=== PATIENT | male | born 1930 | race Caucasian/White ===

== ENCOUNTER 2019-09-28 00:29 | Emergency (ER) | payer MEDICARE, BC ==
[2019-09-28] MEDS ORDERED: Furosemide 40 MG/4 ML VIAL IVPUSH ONE (00:34)
[2019-09-28] MEDS ORDERED: Albuterol 0.083% 2.5 MG/3 ML Neb Soln NEB ONE (00:35)
--- NOTE | 2019-09-28 00:49 | EDM.PDOC ---
ED HPI GENERAL MEDICAL PROBLEM - General Chief Complaint: Respiratory Problem Stated Complaint: SHORT OF BREATH Time Seen by Provider: 09/28/19 00:47 Source of Information: Reports: Patient History Limitations: Reports: No Limitations - History of Present Illness INITIAL COMMENTS - FREE TEXT/NARRATIVE: pt arrived with marked sob. He has been having breathing problems for the past several hours. His ankle have been swollen Onset: Sudden Duration: Hour(s): Location: Reports: Chest Associated Symptoms: Reports: Cough, Diaphoresis, Shortness of Breath, Other ( ankle swelling. ) - Related Data Allergies Allergy/AdvReac Type Severity Reaction Status Date / Time No Known Allergies Allergy Verified 09/28/19 01:12 Home Meds: Home Meds Levothyroxine [Synthroid] 50 mcg PO ACBRK 03/13/14 [History] Losartan [Cozaar] 100 mg PO DAILY 03/13/14 [History] Warfarin Sliding Scale [Coumadin Sliding Scale] 5 mg PO ASDIRECTED 03/13/14 [ History] Clopidogrel [Plavix] 75 mg PO DAILY 11/18/16 [History] Acetaminophen [Tylenol Extra Strength] 650 mg PO Q8H PRN 09/08/17 [History] Latanoprost [Xalatan] 1 drop EYEBOTH DAILY 09/08/17 [History] Tamsulosin [Flomax] 0.4 mg PO DAILY 09/08/17 [History] Warfarin [Coumadin] 2.5 mg PO ASDIRECTED 09/08/17 [History] atorvaSTATin [Lipitor] 80 mg PO BEDTIME 09/08/17 [History] timoloL maleate [Timoptic-XE 0.25% Ophth Gel] 1 drop EYELF DAILY 09/08/17 [ History] Finasteride 5 mg PO DAILY 09/28/19 [History] Furosemide [Lasix] 20 mg PO DAILY 09/28/19 [History] Metoprolol Tartrate 25 mg PO BID 09/28/19 [History] Past Medical History Musculoskeletal History: Reports: Other (See Below) Other Musculoskeletal History: L knee pain Social & Family History - Caffeine Use Caffeine Use: Reports: Coffee, Tea ED ROS GENERAL - Review of Systems Review Of Systems: See Below Constitutional: Reports: Diaphoresis HEENT: Reports: No Symptoms Respiratory: Reports: Shortness of Breath, Wheezing, Cough Cardiovascular: Reports: Palpitations, Other (pt has a known history of atrial fib. ) Endocrine: Reports: No Symptoms GI/Abdominal: Reports: No Symptoms : Reports: No Symptoms Musculoskeletal: Reports: No Symptoms Skin: Reports: No Symptoms Neurological: Reports: No Symptoms Psychiatric: Reports: Anxiety ED EXAM, GENERAL - Physical Exam Exam: See Below Free Text/Narrative:: pt arrived very sob. He is not having chest pain. He has been sob for several days but much worse tonight. He has had significant ankle swelling. Exam Limited By: No Limitations General Appearance: Alert, Anxious, Severe Distress Ears: Normal TMs Nose: Normal Inspection Throat/Mouth: Normal Inspection Head: Atraumatic Neck: Normal Inspection Respiratory/Chest: Decreased Breath Sounds, Rales, Wheezing Cardiovascular: Irregularly Irregular, Other (pt has a history of atrial fib. ) GI/Abdominal: Soft, Non-Tender (Male) Exam: Deferred Rectal (Males) Exam: Deferred Back Exam: Normal Inspection Extremities: Pedal Edema, Other (pt has plus 3 pitting edema. ) Neurological: Alert, Oriented, Normal Cognition Psychiatric: Normal Affect Course - Vital Signs Last Recorded V/S: Last Vital Signs Temp 35.8 C L 09/28/19 00:48 Pulse 67 09/28/19 03:18 Resp 22 H 09/28/19 03:18 BP 116/91 H 09/28/19 03:18 Pulse Ox 96 09/28/19 03:18 - Orders/Labs/Meds Orders: Active Orders 24 hr Category Date Time Status RT Aerosol Therapy [RC] ASDIRECTED Care 09/28/19 00:35 Active Labs: Laboratory Tests 09/28/19 09/28/19 09/28/19 Range/Units 00:40 00:40 00:40 WBC 17.5 H (4.5-11.0) K/uL RBC 4.49 (4.30-5.90) M/uL Hgb 14.0 (12.0-15.0) g/dL Hct 41.5 (40.0-54.0) % MCV 92 (80-98) fL MCH 31 (27-31) pg MCHC 34 (32-36) % Plt Count 397 (150-400) K/uL Neut % (Auto) 73 H (36-66) % Lymph % (Auto) 14 L (24-44) % [place] % (Auto) 13 H (2-6) % Eos % (Auto) 0 L (2-4) % Baso % (Auto) 0 (0-1) % PT (9.5-12.0) sec INR (0.80-1.20) Puncture Site ABG pH (7.350-7.450) ABG pCO2 (35.0-42.0) mmHg ABG pO2 (75.0-100.0) mmHg ABG HCO3 (22.0-26.0) mmol/L ABG Total CO2 (23.0-27.0) mmol/L ABG O2 Saturation (95.0-98.0) % ABG O2 Content (15.0-23.0) %vol ABG Base Excess mm/L ABG Hemoglobin (13.5-18.0) g/dL ABG Oxyhemoglobin % ABG Carboxyhemoglobin (0.0-1.6) % ABG Methemoglobin % O2 Delivery Device Oxygen Flow Rate L Sodium 119 L* (140-148) mmol/L Potassium 4.1 (3.6-5.2) mmol/L Chloride 85 L (100-108) mmol/L Carbon Dioxide 22 (21-32) mmol/L Anion Gap 16.1 H (5.0-14.0) mmol/L BUN 20 H (7-18) mg/dL Creatinine 1.1 (0.8-1.3) mg/dL Est Cr Clr Drug Dosing 41.89 mL/min Estimated GFR (MDRD) > 60 (>60) Glucose 171 H (74-106) mg/dL Calcium 8.2 L (8.5-10.1) mg/dL Total Bilirubin 1.1 H D (0.2-1.0) mg/dL AST 24 (15-37) U/L ALT 30 (12-78) U/L Alkaline Phosphatase 93 (46-116) U/L Troponin I < 0.017 (0.000-0.056) ng/mL NT-Pro-B Natriuret Pep (5-450) pg/mL Total Protein 6.8 (6.4-8.2) g/dL Albumin 3.7 (3.4-5.0) g/dL Globulin 3.1 (2.3-3.5) g/dL Albumin/Globulin Ratio 1.2 (1.2-2.2) Urine Color (YELLOW) Urine Appearance (CLEAR) Urine pH (5.0-8.0) Ur Specific [place] (1.008-1.030) Urine Protein (NEGATIVE) mg/dL Urine Glucose (UA) (NEGATIVE) mg/dL Urine Ketones (NEGATIVE) mg/dL Urine Occult Blood (NEGATIVE) Urine Nitrite (NEGATIVE) Urine Bilirubin (NEGATIVE) Urine Urobilinogen (0.2-1.0) EU/dL Ur Leukocyte Esterase (NEGATIVE) Urine RBC (0-5) Urine WBC (0-5) Ur Epithelial Cells Amorphous Sediment Urine Bacteria Urine Mucus 09/28/19 09/28/19 09/28/19 Range/Units 00:40 00:40 00:40 WBC (4.5-11.0) K/uL RBC (4.30-5.90) M/uL Hgb (12.0-15.0) g/dL Hct (40.0-54.0) % MCV (80-98) fL MCH (27-31) pg MCHC (32-36) % Plt Count (150-400) K/uL Neut % (Auto) (36-66) % Lymph % (Auto) (24-44) % [place] % (Auto) (2-6) % Eos % (Auto) (2-4) % Baso % (Auto) (0-1) % PT 24.1 H (9.5-12.0) sec INR 2.34 H (0.80-1.20) Puncture Site R brachial ABG pH 7.410 (7.350-7.450) ABG pCO2 36.8 (35.0-42.0) mmHg ABG pO2 34.9 L* (75.0-100.0) mmHg ABG HCO3 22.8 (22.0-26.0) mmol/L ABG Total CO2 20.3 L (23.0-27.0) mmol/L ABG O2 Saturation 60.2 L (95.0-98.0) % ABG O2 Content 11.8 L (15.0-23.0) %vol ABG Base Excess -0.9 mm/L ABG Hemoglobin 14.2 (13.5-18.0) g/dL ABG Oxyhemoglobin 59.1 % ABG Carboxyhemoglobin 1.0 (0.0-1.6) % ABG Methemoglobin 0.8 % O2 Delivery Device Nasal cannula Oxygen Flow Rate 2 L Sodium (140-148) mmol/L Potassium (3.6-5.2) mmol/L Chloride (100-108) mmol/L Carbon Dioxide (21-32) mmol/L Anion Gap (5.0-14.0) mmol/L BUN (7-18) mg/dL Creatinine (0.8-1.3) mg/dL Est Cr Clr Drug Dosing mL/min Estimated GFR (MDRD) (>60) Glucose (74-106) mg/dL Calcium (8.5-10.1) mg/dL Total Bilirubin (0.2-1.0) mg/dL AST (15-37) U/L ALT (12-78) U/L Alkaline Phosphatase (46-116) U/L Troponin I (0.000-0.056) ng/mL NT-Pro-B Natriuret Pep 6351 H (5-450) pg/mL Total Protein (6.4-8.2) g/dL Albumin (3.4-5.0) g/dL Globulin (2.3-3.5) g/dL Albumin/Globulin Ratio (1.2-2.2) Urine Color (YELLOW) Urine Appearance (CLEAR) Urine pH (5.0-8.0) Ur Specific [place] (1.008-1.030) Urine Protein (NEGATIVE) mg/dL Urine Glucose (UA) (NEGATIVE) mg/dL Urine Ketones (NEGATIVE) mg/dL Urine Occult Blood (NEGATIVE) Urine Nitrite (NEGATIVE) Urine Bilirubin (NEGATIVE) Urine Urobilinogen (0.2-1.0) EU/dL Ur Leukocyte Esterase (NEGATIVE) Urine RBC (0-5) Urine WBC (0-5) Ur Epithelial Cells Amorphous Sediment Urine Bacteria Urine Mucus 09/28/19 09/28/19 Range/Units 01:31 03:30 WBC (4.5-11.0) K/uL RBC (4.30-5.90) M/uL Hgb (12.0-15.0) g/dL Hct (40.0-54.0) % MCV (80-98) fL MCH (27-31) pg MCHC (32-36) % Plt Count (150-400) K/uL Neut % (Auto) (36-66) % Lymph % (Auto) (24-44) % [place] % (Auto) (2-6) % Eos % (Auto) (2-4) % Baso % (Auto) (0-1) % PT (9.5-12.0) sec INR (0.80-1.20) Puncture Site ABG pH (7.350-7.450) ABG pCO2 (35.0-42.0) mmHg ABG pO2 (75.0-100.0) mmHg ABG HCO3 (22.0-26.0) mmol/L ABG Total CO2 (23.0-27.0) mmol/L ABG O2 Saturation (95.0-98.0) % ABG O2 Content (15.0-23.0) %vol ABG Base Excess mm/L ABG Hemoglobin (13.5-18.0) g/dL ABG Oxyhemoglobin % ABG Carboxyhemoglobin (0.0-1.6) % ABG Methemoglobin % O2 Delivery Device Oxygen Flow Rate L Sodium 121 L (140-148) mmol/L Potassium (3.6-5.2) mmol/L Chloride (100-108) mmol/L Carbon Dioxide (21-32) mmol/L Anion Gap (5.0-14.0) mmol/L BUN (7-18) mg/dL Creatinine (0.8-1.3) mg/dL Est Cr Clr Drug Dosing mL/min Estimated GFR (MDRD) (>60) Glucose (74-106) mg/dL Calcium (8.5-10.1) mg/dL Total Bilirubin (0.2-1.0) mg/dL AST (15-37) U/L ALT (12-78) U/L Alkaline Phosphatase (46-116) U/L Troponin I (0.000-0.056) ng/mL NT-Pro-B Natriuret Pep (5-450) pg/mL Total Protein (6.4-8.2) g/dL Albumin (3.4-5.0) g/dL Globulin (2.3-3.5) g/dL Albumin/Globulin Ratio (1.2-2.2) Urine Color Yellow (YELLOW) Urine Appearance Clear (CLEAR) Urine pH 6.0 (5.0-8.0) Ur Specific [place] 1.020 (1.008-1.030) Urine Protein 30 H (NEGATIVE) mg/dL Urine Glucose (UA) Negative (NEGATIVE) mg/dL Urine Ketones Negative (NEGATIVE) mg/dL Urine Occult Blood Trace-intact H (NEGATIVE) Urine Nitrite Negative (NEGATIVE) Urine Bilirubin Negative (NEGATIVE) Urine Urobilinogen 0.2 (0.2-1.0) EU/dL Ur Leukocyte Esterase Negative (NEGATIVE) Urine RBC 0-5 (0-5) Urine WBC 0-5 (0-5) Ur Epithelial Cells Rare Amorphous Sediment Not seen Urine Bacteria Few Urine Mucus Not seen Meds: Medications Discontinued Medications Generic Name Dose Route Start Last Admin Trade Name Freq PRN Reason Stop Dose Admin Albuterol 2.5 mg 09/28/19 00:35 09/28/19 00:40 Proventil Neb Soln NEB 09/28/19 00:36 2.5 mg ONETIME ONE Administration Furosemide 60 mg 09/28/19 00:34 09/28/19 00:40 Lasix IVPUSH 09/28/19 00:35 60 mg ONETIME ONE Administration Metoprolol Tartrate 2.5 mg 09/28/19 01:00 09/28/19 01:05 Lopressor IVPUSH 09/28/19 01:01 2.5 mg ONETIME ONE Administration - Re-Assessments/Exams Free Text/Narrative Re-Assessment/Exam: 09/28/19 04:03 pt had a chest xray which showed marked pulmonary edema, his bnp is very high. His wbc was also hisgh. His o2 sats were in the 70s. He was placed on bipap and he maintained sats in the 95-100 range, He was given lasix 60 mg and has put out about 600 cc. His na was found to be 119. He was given a albuterol neb because of the wheezing. He could not be admitted to [facility] because no icu beds were available. Departure - Departure Time of Disposition: 04:06 Disposition: DC/Tfer to Acute Hospital 02 Condition: Fair Clinical Impression: Pulmonary edema, Chronic atrial fibrillation, History of Coumadin therapy, Hyponatremia - Discharge Information Referrals: Parth Avelar MD [Primary Care Provider] - Forms: ED Department Discharge Care Plan Goals: transfer to [facility] Sepsis Event Note - Focused Exam Vital Signs: Vital Signs Temp Pulse Pulse Resp BP BP Pulse Ox 09/28/19 03:18 67 22 H 116/91 H 96 09/28/19 02:47 92 09/28/19 02:17 93 107/76 09/28/19 01:42 133 H 21 H 141/64 H 96 09/28/19 01:05 147 H 157/104 H 09/28/19 00:58 166 H 45 H 153/108 H 78 L 09/28/19 00:48 35.8 C L 143 H 35 H 157/104 H 97 Date Exam was Performed: 09/28/19 Time Exam was Performed: 04:03 - My Orders Last 24 Hours: My Active Orders 09/28/19 00:35 RT Aerosol Therapy [RC] ASDIRECTED - Assessment/Plan Last 24 Hours: My Active Orders 09/28/19 00:35 RT Aerosol Therapy [RC] ASDIRECTED
[2019-09-28] MEDS ORDERED: Metoprolol Tartrate 5 MG/5 ML SDV IVPUSH ONE (01:00)
--- NOTE | 2019-09-28 01:02 | CRLCR ---
INDICATION: Shortness of breath TECHNIQUE: Chest radiograph 1 view COMPARISON: 03/13/2014 FINDINGS: Mediastinum: The mediastinum is normal in appearance. The heart silhouette is normal in size and morphology. Lung: Moderate bilateral central airspace infiltrates are present with bibasilar atelectasis and bilateral pleural effusions. Bone and Soft tissue: Unremarkable for age. IMPRESSION: 1. Moderate bilateral central airspace infiltrates are present with bibasilar atelectasis and bilateral pleural effusions. Findings may be due to pulmonary edema. Dictated by Lenny Dumont MD @ 09/28/2019 1:00:35 AM Dictated by: Lenny Dumont MD @ 09/28/2019 01:00:38 (Electronically Signed)
[2019-09-28 03:41] VITALS: BP 116/91; PULSE 67
== END 2019-09-28 04:21 ==
LOC: JP.ED 00:29
DX: I48.20 Chronic atrial fibrillation, unspecified (principal); J81.1 Chronic pulmonary edema; E87.1 Hypo-osmolality and hyponatremia; Z79.02 Long term (current) use of antithrombotics/antiplatelets; Z79.899 Other long term (current) drug therapy
CPT/HCPCS: 36415; 36600; 71045; 80053; 81001; 82803; 83880; 84295; 84484; 85025; 85610; 94640; 96374; 96375; 99285; J1940; J3490

== ENCOUNTER 2019-11-08 11:22 | Emergency (ER) | payer OTHER ==
[2019-11-08] MEDS ORDERED: Aspirin 81 MG Tab.Chew PO ONE (11:44)
[2019-11-08] MEDS ORDERED: Nitroglycerin 0.4 MG Tab.SL SL PRN (11:44)
[2019-11-08] MEDS ORDERED: Sodium Chloride 0.9% 10 ML Syringe FLUSH PRN (11:44)
[2019-11-08] MEDS ORDERED: Diltiazem 25 MG/5 ML SDV IVPUSH ONE (11:46)
--- NOTE | 2019-11-08 11:50 | EDM.PDOC ---
ED HPI GENERAL MEDICAL PROBLEM - General Chief Complaint: Cardiovascular Problem Stated Complaint: RAPIDHEART RATE Time Seen by Provider: 11/08/19 11:43 Source of Information: Reports: Patient, RN Notes Reviewed History Limitations: Reports: No Limitations - History of Present Illness INITIAL COMMENTS - FREE TEXT/NARRATIVE: 89-year-old gentleman presents the emergency department a complaint of shortness of breath, he has a known history of coronary artery disease as well as chronic atrial fibrillation on chronic anticoagulation therapy. He is a very poor historian and difficult to extract history from him. He states the palpitations started last night when he checked his blood pressure he noticed it was very high and the palpitations continued this morning. He feels very short of breath denies chest pain is feeling palpitations. Does admit to not taking his Lasix medication or blood pressure medication for about a week because he has been out - Related Data Allergies Allergy/AdvReac Type Severity Reaction Status Date / Time No Known Allergies Allergy Verified 11/08/19 11:43 Home Meds: Home Meds Levothyroxine [Synthroid] 50 mcg PO ACBRK 03/13/14 [History] Losartan [Cozaar] 100 mg PO DAILY 03/13/14 [History] Warfarin Sliding Scale [Coumadin Sliding Scale] 5 mg PO ASDIRECTED 03/13/14 [ History] Clopidogrel [Plavix] 75 mg PO DAILY 11/18/16 [History] Acetaminophen [Tylenol Extra Strength] 650 mg PO Q8H PRN 09/08/17 [History] Latanoprost [Xalatan] 1 drop EYEBOTH DAILY 09/08/17 [History] Tamsulosin [Flomax] 0.4 mg PO DAILY 09/08/17 [History] Warfarin [Coumadin] 2.5 mg PO ASDIRECTED 09/08/17 [History] atorvaSTATin [Lipitor] 40 mg PO BEDTIME 09/08/17 [History] timoloL maleate [Timoptic-XE 0.25% Ophth Gel] 1 drop EYELF DAILY 09/08/17 [ History] Finasteride 5 mg PO DAILY 09/28/19 [History] Furosemide [Lasix] 20 mg PO BID 09/28/19 [History] Metoprolol Tartrate 50 mg PO BID 09/28/19 [History] Furosemide [Lasix] 20 mg PO BID #60 tab 11/08/19 [Rx] Magnesium Chloride [Mag-64] 64 mg PO DAILY 11/08/19 [History] Metoprolol Succinate 50 mg PO DAILY #30 tab.er.24h 11/08/19 [Rx] Nitroglycerin 1 tab PO ASDIRECTED 11/08/19 [History] Potassium Chloride 20 meq PO DAILY 11/08/19 [History] Potassium Chloride 20 meq PO DAILY #30 tab.er.prt 11/08/19 [Rx] Tiotropium [Spiriva HandiHaler] 1 puff IH DAILY 11/08/19 [History] Past Medical History HEENT History: Reports: Impaired Vision Cardiovascular History: Reports: CAD, High Cholesterol, Hypertension, [place], Stents Musculoskeletal History: Reports: Other (See Below) Other Musculoskeletal History: L knee pain - Infectious Disease History Infectious Disease History: Reports: Chicken Pox, Measles - Past Surgical History HEENT Surgical History: Reports: Adenoidectomy, Tonsillectomy Cardiovascular Surgical History: Reports: Coronary Artery Stent Neurological Surgical History: Reports: Laminectomy Social & Family History - Family History Family Medical History: Noncontributory - Caffeine Use Caffeine Use: Reports: Coffee, Tea Caffeine Use Comment: 2-3 cups of coffee per day ED ROS GENERAL - Review of Systems Review Of Systems: See Below Constitutional: Reports: No Symptoms HEENT: Reports: No Symptoms Respiratory: Reports: Shortness of Breath Cardiovascular: Reports: Dyspnea on Exertion. Denies: Chest Pain GI/Abdominal: Reports: No Symptoms : Reports: No Symptoms ED EXAM, GENERAL - Physical Exam Exam: See Below Exam Limited By: No Limitations General Appearance: Alert, WD/WN, No Apparent Distress Neck: Normal Inspection, Supple, Non-Tender, Full Range of Motion Respiratory/Chest: No Respiratory Distress, No Accessory Muscle Use, Crackles Cardiovascular: No Murmur, Tachycardia GI/Abdominal: Soft, Non-Tender Extremities: Pedal Edema Course - Vital Signs Last Recorded V/S: Last Vital Signs Temp 98.7 F 11/08/19 11:51 Pulse 103 H 11/08/19 13:28 Resp 26 H 11/08/19 13:09 BP 131/94 H 11/08/19 13:28 Pulse Ox 91 L 11/08/19 13:09 - Orders/Labs/Meds Orders: Active Orders 24 hr Category Date Time Status Cardiac Monitoring [RC] .As Directed Care 11/08/19 11:44 Active EKG Documentation Completion [RC] ASDIRECTED Care 11/08/19 11:46 Active Peripheral IV Care [RC] . DIRECTED Care 11/08/19 11:44 Active Nitroglycerin [Nitrostat] Med 11/08/19 11:44 Active 0.4 mg SL Q5M PRN Sodium Chloride 0.9% [Saline Flush] Med 11/08/19 11:44 Active 10 ml FLUSH ASDIRECTED PRN Peripheral IV Insertion Adult [OM.PC] Stat Oth 11/08/19 11:44 Ordered Saline Lock Insert [OM.PC] Stat Oth 11/08/19 11:44 Ordered EKG 12 Lead [EK] Stat Ther 11/08/19 11:46 Ordered Medication Orders Nitroglycerin (Nitrostat) 0.4 mg SL Q5M PRN PRN Reason: dysp Stop: 11/09/19 11:44 Last Admin: 11/08/19 11:50 Dose: 0.4 mg Sodium Chloride (Saline Flush) 10 ml FLUSH ASDIRECTED PRN PRN Reason: Keep Vein Open Last Admin: 11/08/19 11:51 Dose: 10 ml Labs: Laboratory Tests 11/08/19 11/08/19 11/08/19 Range/Units 11:44 11:53 11:53 WBC 12.1 H (4.5-11.0) K/uL RBC 4.64 (4.30-5.90) M/uL Hgb 14.5 (12.0-15.0) g/dL Hct 44.0 (40.0-54.0) % MCV 95 (80-98) fL MCH 31 (27-31) pg MCHC 33 (32-36) % Plt Count 279 (150-400) K/uL Neut % (Auto) 74 H (36-66) % Lymph % (Auto) 13 L (24-44) % [place] % (Auto) 12 H (2-6) % Eos % (Auto) 2 (2-4) % Baso % (Auto) 0 (0-1) % PT 26.7 H (9.5-12.0) sec INR 2.61 H (0.80-1.20) APTT 38.0 H (27.0-36.0) sec Sodium 132 L (140-148) mmol/L Potassium 4.0 (3.6-5.2) mmol/L Chloride 97 L (100-108) mmol/L Carbon Dioxide 26 (21-32) mmol/L Anion Gap 13.0 (5.0-14.0) mmol/L BUN 16 (7-18) mg/dL Creatinine 1.2 (0.8-1.3) mg/dL Est Cr Clr Drug Dosing 39.78 mL/min Estimated GFR (MDRD) 57 L (>60) Glucose 143 H (74-106) mg/dL Calcium 8.7 (8.5-10.1) mg/dL Total Bilirubin 1.6 H (0.2-1.0) mg/dL AST 20 (15-37) U/L ALT 27 (12-78) U/L Alkaline Phosphatase 103 (46-116) U/L Troponin I 0.027 (0.000-0.056) ng/mL NT-Pro-B Natriuret Pep 5183 H (5-450) pg/mL Total Protein 6.5 (6.4-8.2) g/dL Albumin 3.4 (3.4-5.0) g/dL Globulin 3.1 (2.3-3.5) g/dL Albumin/Globulin Ratio 1.1 L (1.2-2.2) Meds: Medications Generic Name Dose Route Start Last Admin Trade Name Geovani PRN Reason Stop Dose Admin Nitroglycerin 0.4 mg 11/08/19 11:44 11/08/19 11:50 Nitrostat SL 11/09/19 11:44 0.4 mg Q5M PRN Administration dysp Sodium Chloride 10 ml 11/08/19 11:44 11/08/19 11:51 Saline Flush FLUSH 10 ml ASDIRECTED PRN Administration Keep Vein Open Discontinued Medications Generic Name Dose Route Start Last Admin Trade Name Freq PRN Reason Stop Dose Admin Aspirin 324 mg 11/08/19 11:44 11/08/19 11:49 Aspirin PO 11/08/19 11:45 324 mg ONETIME ONE Administration Diltiazem HCl 25 mg 11/08/19 11:46 11/08/19 11:52 Diltiazem IVPUSH 11/08/19 11:47 25 mg ONETIME ONE Administration Furosemide 80 mg 11/08/19 12:02 11/08/19 12:10 Lasix IVPUSH 11/08/19 12:03 80 mg ONETIME ONE Administration Metoprolol Tartrate 50 mg 11/08/19 13:22 11/08/19 13:28 Lopressor PO 11/08/19 13:23 50 mg ONETIME ONE Administration Departure - Departure Time of Disposition: 14:43 Disposition: Home, Self-Care 01 Condition: Fair Clinical Impression: Atrial fibrillation with rapid ventricular response Acute exacerbation of congestive heart failure Qualifiers: Heart failure type: unspecified Qualified Code(s): I50.9 - Heart failure, unspecified Prescriptions: Furosemide [Lasix] 20 mg PO BID #60 tab Metoprolol Succinate 50 mg PO DAILY #30 tab.er.24h Potassium Chloride 20 meq PO DAILY #30 tab.er.prt Instructions: Heart Failure, [id number], Atrial Fibrillation, [id number] Referrals: PCP,None [Primary Care Provider] - Forms: ED Department Discharge Additional Instructions: Your medications have been faxed to [facility] pharmacy in [place], resume your regular medications, please followup with your primary care provider in 3-5 days if not better, please call return to the emergency department with worsening of symptoms. Critical Care Note - Critical Care Note Total Time (mins): 15 Sepsis Event Note - Focused Exam Vital Signs: Vital Signs Temp Pulse Pulse Resp BP BP Pulse Ox 11/08/19 13:28 103 H 131/94 H 11/08/19 13:09 119 H 26 H 122/83 91 L 11/08/19 12:46 93 17 100/68 92 L 11/08/19 12:28 91 16 94/68 93 L 11/08/19 12:00 81 18 91/63 91 L 11/08/19 11:57 96 19 83/58 L 92 L 11/08/19 11:51 98.7 F 142 H 20 159/121 H 94 L 11/08/19 11:50 134/109 H 11/08/19 11:45 156 H 21 H 134/109 H 90 L 11/08/19 11:31 98.7 F 142 H 20 159/121 H 94 L Date Exam was Performed: 11/08/19 Time Exam was Performed: 14:40 - My Orders Last 24 Hours: My Active Orders 11/08/19 11:44 Cardiac Monitoring [RC] .As Directed Peripheral IV Care [RC] . DIRECTED Nitroglycerin [Nitrostat] 0.4 mg SL Q5M PRN Sodium Chloride 0.9% [Saline Flush] 10 ml FLUSH ASDIRECTED PRN Peripheral IV Insertion Adult [OM.PC] Stat Saline Lock Insert [OM.PC] Stat 11/08/19 11:46 EKG Documentation Completion [RC] ASDIRECTED EKG 12 Lead [EK] Stat - Assessment/Plan Last 24 Hours: My Active Orders 11/08/19 11:44 Cardiac Monitoring [RC] .As Directed Peripheral IV Care [RC] . DIRECTED Nitroglycerin [Nitrostat] 0.4 mg SL Q5M PRN Sodium Chloride 0.9% [Saline Flush] 10 ml FLUSH ASDIRECTED PRN Peripheral IV Insertion Adult [OM.PC] Stat Saline Lock Insert [OM.PC] Stat 11/08/19 11:46 EKG Documentation Completion [RC] ASDIRECTED EKG 12 Lead [EK] Stat Plan: Assessment Acuity = acute Site and laterality = exacerbation congestive heart failure atrial fibrillation with rapid ventricular response Etiology = secondary to no medications Manifestations = dyspnea Location of injury = Home Lab values = WBC elevated 12.1 consistent leukocytosis, INR therapeutic 2.61 sodium low at 132 consistent hyponatremia total bilirubin elevated 1.6 consistent with hyperbilirubinemia troponin in the normal range 0.027 probably related to leak phenomenon BNP markedly elevated 5183 consistent with fluid overload type pattern chest x-ray does reveal cardiomegaly with no overt pulmonary congestion EKG demonstrates a tachycardia with atrial fibrillation Plan Initially he was given Cardizem 25 mg which did improve the atrial fibrillation he was then restarted on his home medications he was also given an 80 mg Lasix bolus he did have good urinary output which did improve his dyspnea plan is to restart his home medications of Lasix and metoprolol he will follow-up with his primary care in 3 to 5 days if not better he does have a follow-up appointment with cardiology at the end of this month This note was dictated using [employer] voice recognition software please call with any questions on syntax or grammar.
[2019-11-08] MEDS ORDERED: Furosemide 40 MG/4 ML VIAL IVPUSH ONE (12:02)
[2019-11-08] MEDS ORDERED: Metoprolol Tartrate 50 MG Tab PO ONE (13:22)
[2019-11-08 13:29] VITALS: BP 131/94; PULSE 103
--- NOTE | 2019-11-08 13:33 | CR ---
CHEST: Portable 11/08/2019 at 12:09 PM CLINICAL HISTORY:Chest pain COMPARISON:09/28/2019 FINDINGS: Heart is enlarged. Pulmonary vascularity is relatively normal. It has diminished since prior study. There are bilateral lower lobe infiltrates.. There is a small right effusion which is decreased since prior study. IMPRESSION: Cardiomegaly with relatively normal pulmonary vascular Bilateral lower lobe infiltrates left greater than right. This could represent some residual or recurrent pulmonary edema. Pneumonic infiltrates are not excluded
== END 2019-11-08 15:01 | disposition home or self-care (01) ==
LOC: JP.ED 11:22
DX: I11.0 Hypertensive heart disease with heart failure (principal); I48.91 Unspecified atrial fibrillation; I50.9 Heart failure, unspecified; I25.10 Atherosclerotic heart disease of native coronary artery without angina pectoris; E78.00 Pure hypercholesterolemia, unspecified; I25.2 Old myocardial infarction; Z79.01 Long term (current) use of anticoagulants; Z79.899 Other long term (current) drug therapy; Z79.02 Long term (current) use of antithrombotics/antiplatelets
CPT/HCPCS: 36415; 71045; 80053; 83880; 84484; 85025; 85610; 85730; 93005; 96374; 96375; 99284; 99285; A9270; J1940; J3490

== ENCOUNTER 2021-03-22 05:05 | Emergency (ER) | payer MEDICARE, BC, OTHER ==
[2021-03-22] MEDS ORDERED: Metoprolol Succinate 50 MG Tab.ER PO ONE (05:14)
--- NOTE | 2021-03-22 05:17 | EDM.PDOC ---
ED HPI GENERAL MEDICAL PROBLEM - General Chief Complaint: ENT Problem Stated Complaint: [facility] Time Seen by Provider: 03/22/21 05:07 Source of Information: Reports: Patient History Limitations: Reports: No Limitations - History of Present Illness INITIAL COMMENTS - FREE TEXT/NARRATIVE: Shon is an 89-year-old male presenting to the ED via [facility] for evaluation of epistaxis. Patient reports that the bleeding started about 45 minutes prior to arrival. The patient is on warfarin and Plavix. He presents hypertensive with a blood pressure of 176/121. The patient is normally seen by his primary care provider Dr. Avelar. The patient denies any injury. He does have a history significant for atrial fibrillation for which she is on the warfarin and coronary artery disease status post stent placement for which he is on the Plavix. He also has a significant history for hypertension, CHF, hypothyroidism, BPH, and fluid retention causing peripheral edema. 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 - Related Data Allergies Allergy/AdvReac Type Severity Reaction Status Date / Time No Known Allergies Allergy Verified 11/08/19 11:43 Home Meds: Home Meds Levothyroxine [Synthroid] 50 mcg PO ACBRK 03/13/14 [History] Losartan [Cozaar] 100 mg PO DAILY 03/13/14 [History] Warfarin Sliding Scale [Coumadin Sliding Scale] 5 mg PO ASDIRECTED 03/13/14 [History] Clopidogrel [Plavix] 75 mg PO DAILY 11/18/16 [History] Acetaminophen [Tylenol Extra Strength] 650 mg PO Q8H PRN 09/08/17 [History] Latanoprost [Xalatan] 1 drop EYEBOTH DAILY 09/08/17 [History] atorvaSTATin [Lipitor] 40 mg PO BEDTIME 09/08/17 [History] timoloL maleate [Timoptic-XE 0.25% Ophth Gel] 1 drop EYELF DAILY 09/08/17 [History] Finasteride 5 mg PO DAILY 09/28/19 [History] Furosemide [Lasix] 20 mg PO BID #60 tab 11/08/19 [Rx] Magnesium Chloride [Mag-64] 64 mg PO DAILY 11/08/19 [History] Metoprolol Succinate 50 mg PO DAILY #30 tab.er.24h 11/08/19 [Rx] Nitroglycerin 1 tab PO ASDIRECTED 11/08/19 [History] Potassium Chloride 20 meq PO DAILY 11/08/19 [History] Past Medical History HEENT History: Reports: Impaired Vision Cardiovascular History: Reports: CAD, High Cholesterol, Hypertension, NV, Stents Musculoskeletal History: Reports: Other (See Below) Other Musculoskeletal History: L knee pain - Infectious Disease History Infectious Disease History: Reports: Chicken Pox, Measles - Past Surgical History HEENT Surgical History: Reports: Adenoidectomy, Tonsillectomy Cardiovascular Surgical History: Reports: Coronary Artery Stent Neurological Surgical History: Reports: Laminectomy Social & Family History - Family History Family Medical History: No Pertinent Family History - Caffeine Use Caffeine Use: Reports: Coffee, Tea Caffeine Use Comment: 2-3 cups of coffee per day ED ROS ENT - Review of Systems Review Of Systems: See Below Constitutional: Reports: No Symptoms HEENT: Reports: Hearing Loss (Patient is very hard of hearing), Nosebleed (Acute epistaxis for the last 45 minutes. EMS was not able to tell which side it was coming out of. Patient has also been coughing up blood likely from his retropharynx.) Respiratory: Reports: Cough Cardiovascular: Reports: Blood Pressure Problem (Patient is hypertensive at 176/121) Endocrine: Reports: No Symptoms GI/Abdominal: Reports: No Symptoms : Reports: No Symptoms Musculoskeletal: Reports: No Symptoms Skin: Reports: No Symptoms Neurological: Reports: No Symptoms Psychiatric: Reports: Anxiety Hematologic/Lymphatic: Reports: Easy Bleeding (On warfarin and Plavix) Immunologic: Reports: No Symptoms ED EXAM, ENT - Physical Exam Exam: See Below Exam Limited By: No Limitations General Appearance: Alert, Anxious, Mild Distress Eye Exam: Bilateral Eye: EOMI, PERRL Nose: Active Bleeding (Initially blood was coming from the right naris and appeared to be coming from the anterior septum, however, a 7.5 cm Rhino Rocket was instilled with tranexamic acid and deployed into the right naris and blood started coming out of the left naris then. This process was repeated in the left naris.) Mouth/Throat: Bleeding (Bleeding coming from the nasopharynx) Head: Atraumatic, Normocephalic Neck: Normal Inspection Respiratory/Chest: No Respiratory Distress, Lungs Clear, Normal Breath Sounds Cardiovascular: Normal Peripheral Pulses, No Murmur, Irregularly Irregular ED ENT PROCEDURES - Epistaxis Procedure Indication: Epistaxis, Uncontrolled Recent anticoagulants/antiplatlets: Yes (Patient is on both warfarin and Plavix) Uncontrolled HTN: Yes Recent septal/nasal surgery: No Site of bleeding: Right Nare, Left Nare, Anterior Posterior packing: Long Inflatable Nasal Tampon (7.5 cm Rhino Rocket's soaked in tranexamic acid were deployed in both naris) Complications: No Course - Vital Signs Last Recorded V/S: Last Vital Signs Temp 36.6 C 03/22/21 05:17 Pulse 87 03/22/21 06:45 Resp 14 03/22/21 05:17 BP 172/106 H 03/22/21 06:45 Pulse Ox 96 03/22/21 05:17 - Orders/Labs/Meds Orders: Active Orders 24 hr Category Date Time Status Phytonadione [AquaMephyton] 10 mg Med 03/22/21 07:15 Ordered Sodium Chloride 0.9% [Normal Saline] 50 ml IV NOW amLODIPine [Norvasc] Med 03/22/21 07:16 Once 5 mg PO ONETIME ONE Medication Orders Amlodipine Besylate (Amlodipine 5 Mg Tab) 5 mg PO ONETIME ONE Stop: 03/22/21 07:17 Phytonadione 10 mg/ Sodium (Chloride) 51 mls @ 100 mls/hr IV NOW ONE Stop: 03/22/21 07:45 Labs: Laboratory Tests 03/22/21 03/22/21 Range/Units 05:40 05:40 WBC 11.0 (4.5-11.0) K/uL RBC 5.01 (4.30-5.90) M/uL Hgb 15.3 H (12.0-15.0) g/dL Hct 46.9 (40.0-54.0) % MCV 94 (80-98) fL MCH 31 (27-31) pg MCHC 33 (32-36) % Plt Count 181 (150-400) K/uL PT 26.7 H (9.5-12.0) sec INR 2.49 H (0.80-1.20) APTT 33.4 (27.0-36.0) sec Meds: Medications Generic Name Dose Route Start Last Admin Trade Name Freq PRN Reason Stop Dose Admin Amlodipine Besylate 5 mg 03/22/21 07:16 Amlodipine 5 Mg Tab PO 03/22/21 07:17 ONETIME ONE Phytonadione 10 mg/ Sodium 51 mls @ 100 mls/hr 03/22/21 07:15 Chloride IV 03/22/21 07:45 NOW ONE Discontinued Medications Generic Name Dose Route Start Last Admin Trade Name Geovani PRN Reason Stop Dose Admin Amlodipine Besylate 5 mg 03/22/21 06:31 03/22/21 06:37 Amlodipine 5 Mg Tab PO 03/22/21 06:32 5 mg ONETIME ONE Administration Losartan Potassium 100 mg 03/22/21 05:47 03/22/21 05:52 Losartan 50 Mg Tab PO 03/22/21 05:48 100 mg ONETIME ONE Administration Metoprolol Succinate 50 mg 03/22/21 05:14 03/22/21 05:19 Metoprolol Succinate 50 Mg Tab.Er PO 03/22/21 05:15 50 mg ONETIME ONE Administration Tranexamic Acid 500 mg 03/22/21 05:07 03/22/21 05:12 Tranexamic Acid 1,000 Mg/10 Ml Amp TOP 03/22/21 05:08 500 mg ONETIME ONE Administration Tranexamic Acid 500 mg 03/22/21 05:22 03/22/21 05:20 Tranexamic Acid 1,000 Mg/10 Ml Amp TOP 03/22/21 05:23 500 mg ONETIME ONE Administration - Re-Assessments/Exams Free Text/Narrative Re-Assessment/Exam: 03/22/21 06:16 Shon presents with acute epistaxis coming predominantly from the right naris. I am unable to see exactly where he is bleeding from but it appears to be coming from the anterior septum. We soaked a Rhino Rocket and tranexamic acid 500 mg in deployed a 7.5 cm anterior posterior hemostatic nasal balloon in the right naris. This resulted in blood coming around the back of the of the nose and he started to bleed from the left naris. A second 7.5 cm Rhino Rocket was soaked in tranexamic acid and deployed in the left naris. Both were inflated to 10 cc of air. Initially, the patient had slowing of the bleeding, however, he remained sufficiently hypertensive with his initial blood pressure being 200/128. He has not had any of his antihypertensive so he was given metoprolol XL 50 mg p.o. and losartan 100 mg p.o. with only minimal improvement in his blood pressure to 176/108. The patient was given an additional amlodipine 10 mg p.o. with improvement in his blood pressure, however, the bleeding continued. The patient has been forcefully coughing and to the point that he has pushed the right hemostatic balloon partially out of the naris causing him to start to bleed again. This again was soaked in TXA and replaced with a new 7.5 hemostatic balloon. The patient was given vitamin K 10 mg IV push. His last blood pressure was 145/98. Despite this, he continues to bleed. Labs were reviewed showing a normal hemoglobin at 15.3 and a platelet count of 181,000. His PT is 26.7 with an INR of 2.49 and his PTT is 33.4. Without additional equipment to manage this, I I do reach out to [facility] otorhinolaryngology. Despite being consultant internship, they would not answer their phone or page. The nurse triage from [facility] suggested I call [facility]. I discussed the case with the patent chemist from [facility] who recommended I send the patient to their emergency room. I discussed the case with Dr. Medel from the [facility] emergency room who accepts the patient in transfer. They will further attempt to get the bleeding under control and if unsuccessful will contact the patent chemist for further care. This was discussed with the patient who understands the plan. Departure - Departure Time of Disposition: 07:23 Disposition: DC/Tfer to [facility] 02 Clinical Impression: Epistaxis, History of Coumadin therapy, Uncontrolled hypertension - Discharge Information Instructions: Nosebleed, Adult, [id number] Referrals: PCP,None [Primary Care Provider] - Forms: ED Department Discharge Sepsis Event Note (ED) - Focused Exam Vital Signs: Vital Signs Temp Pulse Pulse Resp BP BP Pulse Ox 03/22/21 06:45 87 172/106 H 03/22/21 06:37 167/107 H 03/22/21 06:16 94 163/108 H 03/22/21 05:52 167/128 H 03/22/21 05:46 96 167/128 H 03/22/21 05:30 92 164/116 H 03/22/21 05:19 90 174/121 H 03/22/21 05:17 36.6 C 90 14 174/121 H 96 - Problem List & Annotations (1) Epistaxis SNOMED Code(s): 170063941 Code(s): R04.0 - EPISTAXIS Status: Acute Priority: Medium Current Visit: Yes (2) Chronic atrial fibrillation SNOMED Code(s): 819393552 Code(s): I48.20 - CHRONIC ATRIAL FIBRILLATION, UNSPECIFIED Status: Chronic Priority: Medium Current Visit: No (3) History of Coumadin therapy SNOMED Code(s): 218209870 Code(s): Z92.29 - PERSONAL HISTORY OF OTHER DRUG THERAPY Status: Chronic Priority: Medium Current Visit: Yes (4) Uncontrolled hypertension SNOMED Code(s): 07568515, 03278135 Code(s): I10 - ESSENTIAL (PRIMARY) HYPERTENSION Status: Acute Priority: High Current Visit: Yes - Problem List Review Problem List Initiated/Reviewed/Updated: Yes - My Orders Last 24 Hours: My Active Orders 03/22/21 07:15 Phytonadione [AquaMephyton] 10 mg Sodium Chloride 0.9% [Normal Saline] 50 ml IV NOW 03/22/21 07:16 amLODIPine [Norvasc] 5 mg PO ONETIME ONE - Assessment/Plan Last 24 Hours: My Active Orders 03/22/21 07:15 Phytonadione [AquaMephyton] 10 mg Sodium Chloride 0.9% [Normal Saline] 50 ml IV NOW 03/22/21 07:16 amLODIPine [Norvasc] 5 mg PO ONETIME ONE
[2021-03-22] MEDS ORDERED: Losartan 50 MG Tab PO ONE (05:47)
[2021-03-22] MEDS ORDERED: amLODIPine 5 MG Tab PO ONE ×2 (06:31→07:16)
[2021-03-22 06:52] VITALS: PULSE 87
[2021-03-22] MEDS ORDERED: Phytonadione 10 MG in Sodium Chloride 0.9% 50 ML IV ONE (07:15)
[2021-03-22 07:27] VITALS: BP 145/98
== END 2021-03-22 08:08 ==
LOC: JP.ED 05:05
DX: R04.0 Epistaxis (principal); I48.20 Chronic atrial fibrillation, unspecified; I11.0 Hypertensive heart disease with heart failure; I50.9 Heart failure, unspecified; E03.9 Hypothyroidism, unspecified; N40.0 Benign prostatic hyperplasia without lower urinary tract symptoms; E78.00 Pure hypercholesterolemia, unspecified; I25.10 Atherosclerotic heart disease of native coronary artery without angina pectoris; I25.2 Old myocardial infarction; Z92.29 Personal history of other drug therapy; Z79.01 Long term (current) use of anticoagulants; Z95.5 Presence of coronary angioplasty implant and graft; Z79.899 Other long term (current) drug therapy
CPT/HCPCS: 30903; 36415; 85027; 85610; 85730; 96365; 99285; A9270; J3430